=== PATIENT | male | born 1940 | race Caucasian/White ===

== ENCOUNTER 2017-08-30 10:05 | Outpatient (CLI) | payer MEDICARE, OTHER | END 2017-08-30 10:06 | disposition home or self-care (01) | LOC: TBSIIMAG 10:05 | PROVIDERS: ATTEND Orthopaedic Surgery Hand Surgery | DX: M25.511 Pain in right shoulder (principal); Z53.9 Procedure and treatment not carried out, unspecified reason ==

== ENCOUNTER 2017-09-02 14:42 | Day surgery (SDC) | payer MEDICARE, OTHER ==
[2017-08-30 13:24] VITALS: BMI 30.4
[2017-09-02] MEDS ORDERED: Levofloxacin 500 mg/D5W 100 ml Premix Bag ONE (16:13)
[2017-09-02] MEDS ORDERED: Midazolam HCl 2 mg/2 ml Vial ONE ×2 (16:37→17:08)
[2017-09-02 16:50] LABS: #Basophils 0.1 thou/uL (0.0-0.2); #Eosinphils 0.3 thou/uL (0.0-0.7); #Lymphocytes 1.7 thou/uL (1.20-3.40); #Monocytes 0.5 thou/uL (0.11-0.59); #Neutrophils 4.4 thou/uL (1.40-6.50); %Basophils 1.1 % (0.0-1.0); %Eosinophils 4.3 % (0.0-10.0); %Lymphocytes 24.2 % (21.0-51.0); %Monocytes 7.7 % (0.0-10.0); Hematocrit 40.5 % (42.0-52.0); Mean Platelet Volume 6.7 fL (7.4-10.4); Red Blood Cell (RBC) Count 4.08 mill/uL (4.70-6.10)
[2017-09-02] MEDS ORDERED: Fentanyl 100 MCG/2 ML VIAL ONE (17:08)
[2017-09-02] MEDS ORDERED: Betamet Acet/Betamet Na Ph 30 MG/5 ML VIAL ONE (17:11)
[2017-09-02] MEDS ORDERED: Bacitracin Zinc Ointment 30 gm TUBE ONE (17:11)
[2017-09-02] MEDS ORDERED: Bupivacaine PF 0.5% 30 ML VIAL ONE (17:11)
[2017-09-02] MEDS ORDERED: Propofol 200 MG/20 ML VIAL ONE (17:42)
[2017-09-02] MEDS ORDERED: ePHEDrine/0.9% NaCl/PF SYRINGE 50 mg/10 ml ONE (17:42)
[2017-09-02] MEDS ORDERED: Ondansetron HCl/PF 4 MG/2 ML Vial ONE (17:42)
[2017-09-02] MEDS ORDERED: Dexamethasone 20 MG/5 ML VIAL ONE (17:42)
[2017-09-02] MEDS ORDERED: Ketorolac Tromethamine 30 MG/ML VIAL ONE (18:41)
--- NOTE | 2017-09-03 08:24 | OP ---
DATE OF PROCEDURE: 09/02/2017 SURGEON: Nagi Ferreira MD ANESTHESIA: General LMA technique augmented by 12 mL of 0.5% Marcaine block. PROCEDURE PERFORMED: 1. Celestone injection, 3 mL intracarpal canal. 2. Carpal tunnel release, left. COMPLICATIONS: None. TOURNIQUET TIME: 60 minutes. FINDINGS: Very tight transverse carpal ligament in the central distal portion with flattening of the median nerve, stippling and hourglass formation is seen in the distal one third of the carpal canal. PROCEDURES PERFORMED: 1. Left carpal tunnel release. 2. Left carpal canal Celestone injection 3 mL drip technique. Anesthesia augmented by 12 mL of 0.5% Marcaine block. No epinephrine. INDICATION: The patient has right slightly greater than left carpal tunnel syndrome, but reported th e left is significant enough that he would like to wait to have the right side done simultaneously do ing the surgery for his right rotator cuff tear, but workup is pending so he agreed to proceed today with the left side in order to manage the least symptomatic. He had preoperative studies and diagnos tic tests, which demonstrate that he had the problem. DESCRIPTION OF PROCEDURE: After successful anesthesia listed above, the limb was prepped and draped. Timeout was called. The patient then had the area visualized. The patient had the time-out done a ppropriately, we outlined an incision that was 2.5 cm long in line with the ring finger medial latera lly and far distal as the line approximately 5 mm distal to the volar wrist flexion crease. Wit h the tourniquet inflated to 250 mmHg pressure, this incision was extended through the outline region carried to the skin and subcutaneous tissue with a knife, subcutaneous was taken to spread the wound, then we used a combination of Taliaferro blade and tenotomy scissors to first release transverse carpal ligament from mid portion distally and then under direct visualization using the same combinat ion of instruments from midportion proximally. Here, we saw all branches were still intact including motor branch, but there was stippling over 1.5 cm of hourglass formation in the center of this 1.5 c m area. Here, we placed the 3 mL of Celestone drip technique, release of tourniquet, obtained hemost asis, and closed the wound with interrupted 4-0 nylon mattress pattern. Bulky dressing was applied j ust after given the last 6 mL of 0.5% Marcaine subcutaneous block and the patient left the operating room without evidence of anesthetic or operative complications.
== END 2017-09-02 19:40 | disposition home or self-care (01) ==
LOC: SDC 14:42
PROVIDERS: ATTEND Orthopaedic Surgery Hand Surgery
PROC: 01N50ZZ Release Median Nerve, Open Approach (ICD-10-PCS; principal; 2017-09-02)
DX: G56.03 Carpal tunnel syndrome, bilateral upper limbs (principal); I10 Essential (primary) hypertension; E78.5 Hyperlipidemia, unspecified; E11.9 Type 2 diabetes mellitus without complications; M79.604 Pain in right leg; G89.29 Other chronic pain; G47.00 Insomnia, unspecified; G47.33 Obstructive sleep apnea (adult) (pediatric); Z79.2 Long term (current) use of antibiotics; Z79.82 Long term (current) use of aspirin; Z79.891 Long term (current) use of opiate analgesic; Z79.899 Other long term (current) drug therapy; Z88.0 Allergy status to penicillin; Z98.42 Cataract extraction status, left eye; Z98.41 Cataract extraction status, right eye; Z96.652 Presence of left artificial knee joint; Z97.8 Presence of other specified devices; Z98.890 Other specified postprocedural states; Z86.73 Personal history of transient ischemic attack (TIA), and cerebral infarction without residual deficits; Z87.891 Personal history of nicotine dependence
CPT/HCPCS: 36415; 85025; J0702; J1100; J1885; J1956; J2250; J2405; J2704; J3010; S0020

== ENCOUNTER 2017-09-13 13:00 | Outpatient (CLI) | payer MEDICARE, OTHER ==
--- NOTE | 2017-09-13 15:55 | RAD ---
RIGHT SHOULDER ARTHROGRAM: HISTORY: Shoulder pain. History of previous rotator cuff surgery. FINDINGS: Humeral head is high-riding directly abutting the undersurface of the acromion. Surgical changes rel ated to a previous rotator cuff repair are noted. After informed consent was obtained, the patient was prepped and draped in normal sterile fashion. L ocal anesthesia obtained with 1% Xylocaine. A 22-gauge spinal needle was inserted into the anterior lower third of the joint space and approximately 12 cc of dilute Omnipaque were injected with good op acification of the joint space. The patient tolerated the procedure well. There were no immediate c omplications. IMPRESSION: Successful right shoulder arthrogram. No immediate complications. Please see CT report concerning t he findings. POS: LAVONNE
--- NOTE | 2017-09-13 17:37 | CT ---
POST ARTHROGRAM CT OF RIGHT SHOULDER PERFORMED WITH CONTRAST: 09/13/17 HISTORY: Shoulder pain. History of previous rotator cuff repair. Moderate arthritic changes of the glenohumeral and AC joints are noted. There is a large recurrent te ar of the rotator cuff with a complete supraspinatus tendon tear which is retracted by as much as 4.2 cm. Tear also involves the anterior aspect of the infraspinatus tendon with a delaminating component to the tear. Fluid extending into the musculotendinous junction. The subscapularis muscle is thin, s pecifically the more superior fibers. There is fluid which dissects along the subscapularis tendon. I cannot definitely demonstrate a biceps tendon. There is pronounced rotator cuff muscle atrophy. Pagan ges most severely involve the infra and supraspinatus tendons but also with moderate atrophy mainly i nvolving the subscapularis and infraspinatus but there is also some moderate atrophy to the supraspin atus muscle. Teres minor maintains normal muscle bulk. IMPRESSION: Large rotator cuff tear with associated rotator cuff muscle atrophy as discussed above. POS: LAVONNE
== END 2017-09-13 13:01 | disposition home or self-care (01) ==
LOC: RAD 13:00
PROVIDERS: ATTEND Orthopaedic Surgery
DX: M25.511 Pain in right shoulder (principal); M75.101 Unspecified rotator cuff tear or rupture of right shoulder, not specified as traumatic; M62.511 Muscle wasting and atrophy, not elsewhere classified, right shoulder
CPT/HCPCS: 23350

== ENCOUNTER 2017-09-30 09:15 | Inpatient (IN) | payer MEDICARE, OTHER ==
[2017-09-30 10:01] VITALS: BMI 30.5
[2017-10-01] MEDS ORDERED: Fentanyl 100 MCG/2 ML VIAL ONE ×2 (07:24→14:44)
[2017-10-01] MEDS ORDERED: Midazolam HCl 2 mg/2 ml Vial ONE (07:24)
[2017-10-01] MEDS ORDERED: Ropivacaine 0.2% HCl/PF 20 ML ONE (07:25)
[2017-10-01] MEDS ORDERED: Tranexamic Acid 1,000 MG/100 ML BAG ONE ×2 (07:34→13:02)
[2017-10-01] MEDS ORDERED: Levofloxacin 500 mg/D5W 100 ml Premix Bag ONE (07:35)
[2017-10-01] MEDS ORDERED: Clindamycin/D5W 900 mg/50 ml Premix Bag ONE (07:35)
[2017-10-01] MEDS ORDERED: Ondansetron HCl/PF 4 MG/2 ML Vial IVP PRN ×3 (08:55→13:08)
[2017-10-01] MEDS ORDERED: HYDROcodone/Acetaminophen 5/325 mg Tablet PO PRN (08:55)
[2017-10-01] MEDS ORDERED: Zolpidem Tartrate 5 MG TAB PO PRN (08:55)
[2017-10-01] MEDS ORDERED: Promethazine HCl 25 MG/ML VIAL IM PRN ×3 (08:55→13:08)
[2017-10-01] MEDS ORDERED: Ropivacaine 0.2% 550 ML 550 ML NERVE BLCK SCH (08:55)
[2017-10-01] MEDS ORDERED: Ketorolac Tromethamine 30 MG/ML VIAL IVP PRN (08:55)
[2017-10-01] MEDS ORDERED: traMADol HCl 50 MG TAB PO PRN ×2 (08:55)
[2017-10-01] MEDS ORDERED: Fentanyl 100 MCG/2 ML VIAL IV PRN (08:56)
[2017-10-01] MEDS ORDERED: Bacitracin Zinc Ointment 30 gm TUBE ONE (09:20)
[2017-10-01] MEDS ORDERED: Betamet Acet/Betamet Na Ph 30 MG/5 ML VIAL ONE (09:20)
[2017-10-01] MEDS ORDERED: Bupivacaine PF 0.5% 30 ML VIAL ONE (09:20)
[2017-10-01] MEDS ORDERED: Promethazine HCl 25 MG/ML VIAL SLOW IVP PRN ×2 (10:14→13:08)
[2017-10-01] MEDS ORDERED: Ropivacaine 0.5% HCl/PF (150 MG/30 ML VIAL) ONE (11:02)
[2017-10-01] MEDS ORDERED: Propofol 200 MG/20 ML VIAL ONE (11:16)
[2017-10-01] MEDS ORDERED: Lidocaine 1% PF 5 ML VIAL ONE (11:16)
[2017-10-01] MEDS ORDERED: ePHEDrine/0.9% NaCl/PF SYRINGE 50 mg/10 ml ONE (11:16)
[2017-10-01] MEDS ORDERED: Dexamethasone 20 MG/5 ML VIAL ONE (11:16)
[2017-10-01] MEDS ORDERED: Ondansetron HCl/PF 4 MG/2 ML Vial ONE (11:16)
--- NOTE | 2017-10-01 14:56 | OP ---
PREOPERATIVE DIAGNOSES: Right rotator cuff tear with rotator cuff arthropathy. POSTOPERATIVE DIAGNOSES: Right rotator cuff tear with rotator cuff arthropathy. PROCEDURE PERFORMED: Right shoulder reverse shoulder arthroplasty. STAFF: David Connolly M.D. BOILER TESTING TECHNICIAN: Lyndon Merchant PA-C ANESTHESIA: Bebo Lorenzo. Patient received a general intubation with an interscalene block. ESTIMATED BLOOD LOSS: 300 mL. TOURNIQUET TIME: None. IMPLANTS: A Tornier 25 mm across averse to baseplate with 20 and 35 mm compression screws at 23 and 29 mm locking screws, 36 mm across averse to a centered sphere flex 3 B stem, 0+ low offset tray and a 6 mm poly. ANTIBIOTICS: Vancomycin 1.5 grams, clindamycin 900 and Levaquin 500. COMPLICATIONS: None. OF PRESENT ILLNESS: Mr. Marin is a 77-year-old male status post right rotator cuff repair performed in 2006. The patient had a history of also the right carpal tunnel symptoms. The patient desired to have a right reverse shoulder arthroplasty with carpal tunnel release. Second part of procedure will be dictated by Dr. Ferreira. The patient was aware of the risks and benefits of the reverse shoulder arthroplasty include pain, scar, bleeding, infection, damage to vital structures, decreased range or strength, failure of procedure, continued pain despite surgical intervention, damage to vital structures, loss of life or limb. The patient understood the risks and benefits of procedure and elected to proceed. Time out was performed designating the patient's right upper extremity as the operative site based on sight, consents, markings. PROCEDURE NOTE: The patient was placed in a beach chair position. His right upper extremity was prepped and draped in sterile fashion. The patient had a deltopectoral incision made. We found the vessels and came into the defect in the deltoid. We took down a portion of the apex on the clavipectoral fascia, found the conjoint tendon, and the subscapularis. We placed our Cobell in position to expose the shoulder. We then came down through the hole superiorly through the subscapularis. The biceps had been tenodesed. We cut down inferior capsule to expose the humeral head. We then made our cut based on the articular cartilage and our 3D cut cutting articular surface off. After we passed the #5 Ethibond into the subscapularis to control it during the cut, we then started with our center reamer and broached up to 2B, had a smooth down the surface, get it positioned started working on glenoid, did our labrectomy, placed our Shayna and Bankart to expose the head, cut 2 more mm off and smoothed down with a 2B, then placed it back, exposed the glenoid. We completely removed all the 180 degrees. We made a center-center position anterior to posterior, little bit high on second visualization of the inferior glenoid or osteophyte. Therefore, we placed the center-center position, drilled. We took a 25 mm reamer, but felt like A to P was better size. The patient then reamed up to a 25 mm cleaned up the guide to the second portion. We then used our larger drill to drill the hole. We placed our 25 mm baseplate, put the inferior posterior screws with good fixation and superior inferior locked into place. We washed. We cleaned off using cleaning reamer. I chose to place a 2 mm glenoid to help with a little bit of high offset placing 2 mm glenoid. We then proceeded to place good firm fixation and moved subacromially. We moved back to the humerus. We removed the manhole cover, removed our bone, went up to size 3 and reamed off plane in perfect position, we placed our low offset tray with a 6 poly reduced, the patient was nice and tight with completely relaxed shoulder, did not have any dislocation, nice tension, we then flexed, elevated, internally and externally rotated. I felt like I had good overall position of the right shoulder. We then elected to dislocate, placed bone with 3 drill holes, passed two 5 sutures into the lesser tuberosity and passed those through the base of our implants and tapped it into place. We then tapped and put on our poly, reduced the head. We used the #5 to sew the subscapularis about 20 degrees, 15-20 degrees of external rotation, sewing horizontal mattress sutures in the subscapularis to act as a tether as well as help with internal rotation. We then washed, closed the deltopectoral interval subcu and edy. The patient will be admitted for antibiotics postoperatively. Will follow my clinic in 2 weeks. The patient's outlook is good and the second portion of this procedure will be dictated by Dr. Ferreira. NAN
[2017-10-01] MEDS ORDERED: Morphine 4 MG/ML VIAL ONE (14:58)
[2017-10-01] MEDS ORDERED: Acetaminophen 325 MG TAB PO PRN (15:50)
[2017-10-01] MEDS ORDERED: HYDROcodone/Acetaminophen 10/325 mg Tablet PO PRN ×2 (15:50)
[2017-10-01] MEDS ORDERED: Methocarbamol 500 MG TAB PO PRN (15:50)
[2017-10-01] MEDS ORDERED: Bisacodyl 10 MG SUPP PR PRN (15:50)
[2017-10-01] MEDS ORDERED: diphenhydrAMINE 50 MG CAP PO PRN (15:50)
[2017-10-01] MEDS: Lactated Ringer's 1,000 ML IV SCH (17:32)
[2017-10-01] MEDS: Vancomycin HCl 1.5 GM in Sodium Chloride 0.9% 250 ML 300 ML IVPB SCH ×4 (17:33→22:46)
[2017-10-01] MEDS: Clindamycin/D5W 900 MG in Premix Bag 1 BAG IVPB SCH (17:34)
[2017-10-01] MEDS: Famotidine 20 MG TAB PO SCH (22:48)
[2017-10-01] MEDS: HYDROcodone/Acetaminophen 5/325 mg Tablet PO PRN (23:10)
[2017-10-02] MEDS: Clindamycin/D5W 900 MG in Premix Bag 1 BAG IVPB SCH (01:45)
[2017-10-02] MEDS: HYDROcodone/Acetaminophen 5/325 mg Tablet PO PRN ×2 (03:40→09:06)
--- NOTE | 2017-10-02 07:07 | OP ---
DATE OF SURGERY: 10/01/2017 The surgery was done at the end of the operative procedure performed by Dr. David Connolly, a right r everse total shoulder arthroplasty. PREOPERATIVE DIAGNOSES: 1. Right carpal tunnel syndrome with a very tight transverse carpal ligament with over 1 cm area of early flat in the median nerve with only minimal stippling. 2. No flexor tenosynovitis. PROCEDURES PERFORMED: 1. Right carpal tunnel release. 2. Injection of Celestone steroid, 3 mL in the carpal canal via open technique. Failed conservative treatment with diagnostic, clinical, and electrodiagnostic findings confirming the diagnosis. COMPLICATIONS: None. TOURNIQUET TIME: 14 minutes. ESTIMATED BLOOD LOSS: 5 mL. DESCRIPTION OF PROCEDURE: After the patient had been completely undraped and reprepped from the farrukh ldwagner procedure, the limb was exsanguinated, tourniquet inflated to 250 mmHg pressure after prepping a nd draping. We then outlined a standard 2-cm incision in line with the ring finger from medial, late ral and as far distal as Wu's cardinal line as far proximal as a 5-mm distal volar wrist flexion crease. We developed this interval with skin, subcutaneous tissue with a combination of knife and Milton blade to release transcarpal ligament. Here, we were able to release the transcarpal liga ment, direct visualization of the mid portion distally with combination of Milton blade and knife. T hen, we did the same for the mid portion proximally. The patient had the transcarpal ligament comple tely released and directly visualized into the palm side of the distal forearm and then we placed 3 m L of Celestone. Flexor tendon was not taken, so no tenosynovectomy was indicated. The patient then had the hemostasis applied, wound closed with interrupted mattress suture, which was well opposed. When he aggreed, we placed him in a large jacket until the bulky dressing had been ap plied. He left the operating room without evidence of anesthetic or operative complication.
[2017-10-02 08:00] VITALS: BP 125/72; TEMP 97.5
--- NOTE | 2017-10-02 08:41 | RAD ---
RIGHT SHOULDER TWO VIEWS: History: Post op evaluation. FINDINGS/IMPRESSION: Post op changes are noted with skin edy overlying the shoulder. Shoulder prosthesis is in place. Components appear in adequate position and alignment. POS: NEERAJ
[2017-10-02] MEDS: Famotidine 20 MG TAB PO SCH (09:08)
[2017-10-02] MEDS: Lactated Ringer's 1,000 ML IV SCH (10:22)
== END 2017-10-02 12:05 | disposition home or self-care (01) | DRG 483 ==
LOC: SURG A 10-01 07:03 → EDSTATUS 10-01 09:15 → SURG A 10-01 15:34
PROVIDERS: ADMIT Orthopaedic Surgery; ATTEND Orthopaedic Surgery
PROC: 0RRJ00Z Replacement of Right Shoulder Joint with Reverse Ball and Socket Synthetic Substitute, Open Approach (ICD-10-PCS; principal; 2017-10-01)
PROC: 01N50ZZ Release Median Nerve, Open Approach (ICD-10-PCS; 2017-10-01)
PROC: 3E0133Z Introduction of Anti-inflammatory into Subcutaneous Tissue, Percutaneous Approach (ICD-10-PCS; 2017-10-01)
PROC: 3E0T3BZ Introduction of Anesthetic Agent into Peripheral Nerves and Plexi, Percutaneous Approach (ICD-10-PCS; 2017-10-01)
DX: M75.101 Unspecified rotator cuff tear or rupture of right shoulder, not specified as traumatic (principal); E11.9 Type 2 diabetes mellitus without complications; I10 Essential (primary) hypertension; M19.011 Primary osteoarthritis, right shoulder; Z86.73 Personal history of transient ischemic attack (TIA), and cerebral infarction without residual deficits; Z96.652 Presence of left artificial knee joint; Z98.42 Cataract extraction status, left eye; Z98.41 Cataract extraction status, right eye; Z87.891 Personal history of nicotine dependence; G56.01 Carpal tunnel syndrome, right upper limb
CPT/HCPCS: 80048; 81001; 85027; 85652; 86140; 93005; 93010; A4306; J0702; J1100; J1956; J2001; J2250; J2270; J2405; J2704; J2795; J3010; J3370; J3490; J7050; S0020

== ENCOUNTER 2017-09-30 09:46 | Outpatient (CLI) | payer MEDICARE, OTHER ==
[2017-09-30 11:48] LABS: Bilirubin Negative (Negative); Blood, Urine Negative (Negative); Glucose, Urine (Dipstick) Negative (Negative); Hematocrit 42.4 % (42.0-52.0); Ketone, Urine Negative (Negative); Mean Platelet Volume 6.9 fL (7.4-10.4); Nitrite Negative (Negative); Protein, Urine (Dipstick) Trace mg/dL (Neg-Trace); Red Blood Cell (RBC) Count 4.24 mill/uL (4.70-6.10); White Blood Cell (WBC) Count 7.5 thou/uL (4.8-10.8)
[2017-09-30 11:58] LABS: Bacteria/HPF None Seen HPF (None Seen); Hyaline Casts/LPF 0-3 HYALINE CAST LPF (0-3 Hyaline); RBC/HPF 0-3 HPF (0-3); Squamous Epithelial None Seen HPF (0-3); WBC/HPF 0-3 HPF (0-3)
[2017-09-30 11:59] LABS: Anion Gap 14 mmol/L (10-20); BUN (Urea Nitrogen) 20 mg/dL (8.4-25.7); Calc. Creatinine Clearance 0 mL/min (70-130); Calcium 9.3 mg/dL (7.8-10.44); Carbon Dioxide 28 mmol/L (23-31); Chloride 98 mmol/L (98-107); Estimated GFR-MDRD 88
== END 2017-09-30 09:47 | disposition home or self-care (01) ==
LOC: LABBT 09:46
PROVIDERS: ATTEND Orthopaedic Surgery
DX: Z01.818 Encounter for other preprocedural examination (principal); M19.011 Primary osteoarthritis, right shoulder
CPT/HCPCS: 80048; 81001; 85027; 85652; 93005; 93010

== ENCOUNTER 2018-10-01 15:02 | Outpatient (CLI) | payer MEDICARE, OTHER ==
--- NOTE | 2018-10-01 16:57 | RAD ---
2 VIEWS RIGHT HIP: Date: 10/01/18 COMPARISON: None. HISTORY: Right hip pain for 1 year. FINDINGS: Two views of the right hip show no evidence of acute fracture or dislocation. No degenerative changes are seen. Vascular calcifications are present. IMPRESSION: No evidence of acute osseous abnormality. POS: NEREAJH
== END 2018-10-01 15:03 | disposition home or self-care (01) ==
LOC: SCSRAD 15:02
PROVIDERS: ATTEND Family Medicine
DX: M25.551 Pain in right hip (principal)